=== PATIENT | male | born 1970 | race Caucasian/White ===

== ENCOUNTER 2020-06-16 19:27 | Observation (INO) | payer BC, OTHER ==
[~2020-06-16] VITALS: Ht 188 cm; Wt 99.3 kg
[~2020-06-16 19:27] MED LIST: AUGMENTIN 875-1 EACH PO
--- NOTE | 2020-06-17 00:16 | NUR ---
VITALS DONE AND CHARTED. BEDSIDE TABLE AND CALL LIGHT IN REACH.
--- NOTE | 2020-06-17 00:28 | NUR ---
pt MOVED FROM STRETCHER TO BED WITH 4 PERSON ASSIST. ADMISSION COMPLETED. KAREN GRAVES IN ROOM. PROVIDED WITH WATER. NO FURTHER REQUESTS AT THIS TIME. DISCUSSED PAIN MANAGEMENT.
--- NOTE | 2020-06-17 00:51 | NUR ---
ASSESSMENT COMPLETED. LOWER BACK PAIN 2/10 WHILE LAYING IN BED. NO SWELLING, DISCOLORATION OR DEFORMITY NOTED. CMS INTACT X4 EXTREMITIES. HEART TONES REGULAR. ABD SOFT, NONTENDER, BOWEL TONES ACTIVE. LUNGS CLEAR. NO EDEMA NOTED. GCS 15, A&O X4. IV WNL, FLUSHED WELL. DAUGHTER IN ROOM. NO OTHER NEEDS AT THIS TIME. CALL LIGHT IN REACH.
--- NOTE | 2020-06-17 05:00 | NUR ---
PT CALLS TO REPORT 5/10 LOWER BACK PAIN. PRN PAIN MEDS PROVIDED. ASSESSMENT COMPLETED. RIGHT LOWER BACK PAINFUL TO PALPATION, APPEARS FIRM TO TOUCH COMPARED TO LEFT SIDE OF LOWER BACK. NO DEFORMITY, DISCOLRATION OR EDEMA NOTED TO RIGHT LOWER BACK. GCS 15, A&O X4. LUNGS CLEAR. ABD SOFT, NONTENDER, BOWEL TONES ACTIVE. HEART TONES REGULAR. NO EDEMA NOTED. CMS INTACT X4 EXTREMITIES. NO OTHER NEEDS AT THIS TIME. CALL LIGHT IN REACH.
--- NOTE | 2020-06-17 06:10 | NUR ---
SCHEDULED MED PROVIDED. PT DENIES NEED TO VOID, DUE TO VOID. VS AND I&O COMPLETED BY JOYCE RANDOLPH. NO OTHER NEEDS AT THIS TIME. CALL LIGHT IN REACH.
--- NOTE | 2020-06-17 07:36 | NUR ---
REPORT RECEIVED. PT IN BED AWAKE. DENIES PAIN. CALL LIGHT IN REACH.
--- NOTE | 2020-06-17 09:30 | NUR ---
ASSESSMENT COMPLETED. PAIN REPORTED AT 12/20. MEDICATION PER DR ORDER GIVEN. (SEE MAR). LUNGS CLEAR. ASSISTED PT TO STAND, THEN TO AMBULATE TO BATHROOM. TOELRATED WELL WITH NO ASSISTANCE. DR ROSAS NOTIFIED.
[2020-06-17] MEDS ORDERED: METHOCARBAMOL500 MG PO ×2 (09:52→09:54)
[2020-06-17] MEDS ORDERED: HYDROCODON-ACE1 EA14 PO (09:53)
[2020-06-17] MEDS ORDERED: PREDNISONE10 MG PO (09:56)
--- NOTE | 2020-06-17 10:06 | NUR ---
PATIENT AWAKE IN BED, IN ROOM. VITALS AND I&OS CHARTED. NO OTHER NEED AT THIS TIME
--- NOTE | 2020-06-17 10:56 | NUR ---
DISCHARGE INSTRUCTIONS PROVIDED. WORK RELEASE AND PRESCRIPTION PROVIED. PT WHEELED OUT. PAIN 12/20.
== END 2020-06-17 10:55 | disposition home or self-care (01) ==
LOC: ED 19:27 → MS 19:28
PROVIDERS: ADMIT Internal Medicine; ATTEND Internal Medicine
DX: M54.5 Low back pain (principal); X50.0XXA Overexertion from strenuous movement or load, initial encounter; Z20.828 Contact with and (suspected) exposure to other viral communicable diseases
CPT/HCPCS: 72131; 96374; 96375; 96376; 99285-25; C9803; G0378; J1100; J1170; J1885; J2405; J3360

== ENCOUNTER 2025-02-28 06:10 | Day surgery (SDC) | payer BC ==
[~2025-02-28] VITALS: Ht 188 cm; Wt 106.8 kg
[~2025-02-28 06:10] MED LIST changes: +HYDROCODON-ACE1 EA14 PO; +METHOCARBAMOL500 MG PO; +MIDAZOLAM HCL 5 MG/5 ML VIAL IV PRN; +PREDNISONE10 MG PO; +fentaNYL citrate 100 MCG/2 ML VIAL IV PRN
[2025-02-28 06:38] VITALS: BP 117/71
[2025-02-28] MEDS ORDERED: fentaNYL citrate 100 MCG/2 ML VIAL ONE (06:43)
[2025-02-28] MEDS ORDERED: MIDAZOLAM HCL 5 MG/5 ML VIAL ONE (06:43)
[2025-02-28] MEDS ORDERED: IBLOOD GLUCOSE TEST STRIP 1 EA TEST VI PRN (07:00)
[2025-02-28] MEDS ORDERED: LACTATED RINGER'S 1,000 ML IV SCH (07:00)
[2025-02-28] MEDS ORDERED: LIDOCAINE HCL 1% 5 ML SDV INJ ONE (07:00)
--- NOTE | 2025-02-28 07:25 | NUR ---
VISITED DURING SPIRITUAL CARE ROUNDS. PT SUPPORTED BY IN ROOM. BOTH IN OVERALL GOOD SPIRITS, NO IMMEDIATE NEEDS. PLASTIC EXTRUDING MACHINE OPERATOR PROVIDED SUPPORTIVE PRESENCE, HOSPITALITY, PRAYER. PT AND EXPRESSED GRATITUDE.
--- NOTE | 2025-02-28 08:30 | NUR ---
02/28/25 0830 Dione Donohue 0820-PT ARRIVES TO PACU VIA STRETCHER, RESTING ON LT SIDE, PT A+O X4, DENIES PAIN OR NAUSEA, VSS ON 2L VIA NC. 0825-PT TITRATED TO RA, VS REMAIN STABLE. AT BEDSIDE TO DISCUSS PROCEEDURE RESULTS AND PLAN OF CARE W/ PT, ALL QUESTIONS ANSWERED.
[2025-02-28 08:47] VITALS: BP 103/65
--- NOTE | 2025-02-28 09:15 | OR ---
[facility] [address], [place] [address] Signed DATE OF OPERATION: 02/28/2025 SURGEON: Diana Blackmon MD PREOPERATIVE DIAGNOSIS: Colon screening. POSTOPERATIVE DIAGNOSIS: Polyps x2 (left colon and sigmoid). PROCEDURE: Total colonoscopy to cecum with cold snare polypectomy x1 and cold morcellation polypectomy x1. ANESTHESIA: Intravenous sedation, fentanyl 100 mcg and Versed 8 mg. INDICATION: This 54-year-old white man is patient of Dr. Walter. He is referred for colon screening. He has no symptoms of bleeding, diarrhea, or constipation and no family history of colon cancer. He understands the risk of colonoscopy, which include but are not limited to bleeding, infection, and perforation. He wished to proceed. FINDINGS: The prep was excellent. Complete colonoscopy was undertaken of the cecum with full intubation of the cecum. There were two small sessile polyps, one in the upper left colon, the other in the sigmoid, both were excised completely. DESCRIPTION OF PROCEDURE: The patient was brought to the endoscopy suite and placed in lateral decubitus position given intravenous sedation to the point of slurred speech and nystagmus. Digital rectal examination was normal. An Olympus video colonoscope was passed in the rectum and manipulated through the sigmoid, identifying a small sessile polyp of the left colon. This was excised with multiple bites of cold morcellation device. The scope was then advanced ultimately to the cecum. The ileocecal valve and appendiceal orifice were normal. Scope was withdrawn. A careful examination and removal of the scope showed no sign of abnormality until the previous polypectomy site affirmed to be in the left colon. Further withdrawal showed another small sessile polyp in the sigmoid. This was excised with Electronically Signed By: DIANA BLACKMON MD 02/28/25 0915 PATIENT NAME: VITO VALDEZ OPERATIVE REPORT DATE OF : 70 REPORT #: [id number] PHYSICIAN: DIANA BLACKMON MD PCP: MARY ELLEN WALTER MD REPORT IS CONFIDENTIAL AND NOT TO BE RELEASED WITHOUT AUTHORIZATION [facility] [address], [place] [address] Signed cold snare technique dominantly. Further withdrawal showed no other abnormality. Retroflexed view of the rectum was normal. Scope was removed. The patient was taken to the recovery room in good condition. CONCLUDING DIAGNOSIS: Polyps x2. PLAN: Recommend repeat colonoscopy in 3-5 years, sooner if symptoms should develop. He will return to the ongoing care of Dr. Walter. MD NIMO Sanderson/ADRIAN /[id number] cc: Dr. Walter Copies: ~ Electronically Signed By: DIANA BLACKMON MD 02/28/25 0915 PATIENT NAME: VITO VALDZE OPERATIVE REPORT DATE OF : 70 REPORT #: [id number] PHYSICIAN: DIANA BLACKMON MD PCP: MARY ELLEN WALTER MD REPORT IS CONFIDENTIAL AND NOT TO BE RELEASED WITHOUT AUTHORIZATION
--- NOTE | 2025-03-03 11:10 | PATH ---
[facility] [address], [place] [address] Signed SPECIMEN(S): A DESCENDING COLON POLYP #1 SPECIMEN(S): B DESCENDING COLON POLYP #2 SPECIMEN SOURCE: A. DESCENDING COLON POLYP #1 B. DESCENDING COLON POLYP #2 CLINICAL HISTORY: Screening FINAL PATHOLOGIC DIAGNOSIS: A. Colon, descending polyp #1, biopsy: - Portions of tubular adenoma (2 of 7 pieces); negative for high-grade dysplasia and malignancy. - Portions of benign, unremarkable colonic mucosa (5 of 7 pieces). B. Colon, descending polyp #2, biopsy: - Portions of tubular adenoma (3 of 4 pieces); negative for high-grade dysplasia and malignancy. - Portion of unremarkable colonic mucosa (1 of 4 pieces). [facility] MICROSCOPIC EXAMINATION: Histologic sections of all submitted blocks are examined by light microscopy. These findings, together with the gross examination, support the pathologic diagnosis. GROSS DESCRIPTION: A. The specimen, labeled and designated "Youncs, descending colon polyp #1," is received in formalin and consists of seven ferreira soft tissue fragments, ranging from 0.1-0.6 cm. Entirely submitted in (A1). B. The specimen, labeled and designated "Youncs, descending colon polyp #2," is received in formalin and consists of four ferreira soft tissue fragments, ranging from 0.1-0.4 cm. Entirely submitted in (B1). VB (under the direct supervision of a pathologist) The Gross Description was prepared using a voice recognition system. The report was reviewed for accuracy; however, sound-alike word errors, addition and/or deletions may occur. If there are any questions about this report, please contact Client Services. PATIENT NAME: VITO VALDEZ PATHOLOGY DATE OF : 70 REPORT #: [id number] PHYSICIAN: SAULO MIRANDA PCP: MARY ELLEN YEE MD REPORT IS CONFIDENTIAL AND NOT TO BE RELEASED WITHOUT AUTHORIZATION [facility] [address], [place] [address] Signed ADDITIONAL NOTES: Immunohistochemical and/or in situ hybridization studies if performed in this case included appropriate positive controls that reacted as expected. This test was developed and its performance characteristics determined by [facility]. It has not been cleared or approved by the U.S. Food and Drug Administration. The FDA has determined that such clearance or approval is not necessary. This test is used for clinical purposes. It should not be regarded as investigational or for research. [facility] is certified under the Clinical Laboratory Improvement Amendments of 1988 (CLIA) as qualified to perform high complexity clinical laboratory testing. PERFORMING LABORATORY: Technical component was performed by [facility], [address] [place] [id number] (CLIA# [id number]). Professional interpretation was performed by [facility], [address] [place] [id number] (CLIA#: [id number]). Diagnostician: Angelica Gray MD Pathologist Electronically Signed 03/03/2025 Copies: ~ PATIENT NAME: VITO VALDEZ PATHOLOGY DATE OF : 70 REPORT #: [id number] PHYSICIAN: SAULO MIRANDA PCP: MARY ELLEN YEE MD REPORT IS CONFIDENTIAL AND NOT TO BE RELEASED WITHOUT AUTHORIZATION
== END 2025-02-28 09:05 | disposition home or self-care (01) ==
LOC: DS 06:10
PROVIDERS: ATTEND Surgery
PROC: 0DBN8ZX Excision of Sigmoid Colon, Via Natural or Artificial Opening Endoscopic, Diagnostic (ICD-10-PCS; 2025-02-28)
PROC: 0DBG8ZX Excision of Left Large Intestine, Via Natural or Artificial Opening Endoscopic, Diagnostic (ICD-10-PCS; principal; 2025-02-28 07:30)
DX: Z12.11 Encounter for screening for malignant neoplasm of colon (principal); D12.4 Benign neoplasm of descending colon; E66.9 Obesity, unspecified; Z68.31 Body mass index [BMI] 31.0-31.9, adult
CPT/HCPCS: 99153; G0500; J2250; J3010